=== PATIENT | male | born 1960 | race Caucasian/White ===

== ENCOUNTER 2021-10-22 09:30 | Emergency (ER) | payer OTHER ==
[~2021-10-22] VITALS: Ht 175.3 cm; Wt 85.7 kg
[~2021-10-22 09:30] MED LIST: BACTRIM DS TAB1 EACH PO; CEPHALEXIN500 MG PO; DOXYCYCLINE HY100 MG PO; EPIPEN 2-P0.3 MG/0.3 IM; FLOMAX0.4 MG PO; MARIJUANA; NAPROSYN500 MG PO; NAPROXEN500 MG PO; NORCO 10-325 T1 EACH PO; NORCO 5-325 TA1 EACH PO; VENTOLIN HFA18 GM INH
--- OUTSIDE RECORDS SUMMARY | 2021-10-22 09:41 | XMS ---
PreManage Notification: JORDAN KUMAR Security Ophthalmic Pathologist Events No recent Security Events currently on file CRITERIA MET - [facility] - 2 Visits in 30 Days CARE PROVIDERS There are no care providers on record at this time. Melanie has no Care Guidelines for this patient. Karri VISIT COUNT (12 MO.) 2 [facility] [place] H. TOTAL 2 NOTE: Visits indicate total known visits. ED/C VISIT TRACKING (12 MO.) 10/22/2021 09:31 [facility] [place] TYPE: Emergency COMPLAINT: - ALLERGIC REACTION TO MEDICATION 10/07/2021 13:[address] [facility] [place] TYPE: Emergency COMPLAINT: - R LEG WOUND DIAGNOSES: - Bee allergy status - Nicotine dependence, unspecified, uncomplicated - Cellulitis of right lower limb - Other tank terminal gauger (current) drug therapy INPATIENT VISIT TRACKING (12 MO.) No inpatient visits to display in this time frame [email or web address]
[2021-10-22] MEDS ORDERED: PREDNISONE20 MG PO (10:33)
[2021-10-22] MEDS ORDERED: FLOVENT HFA12 G1 INH (10:33)
[2021-10-22] MEDS ORDERED: VENTOLIN HFA18 GM INH (10:33)
== END 2021-10-22 10:57 | disposition home or self-care (01) ==
LOC: ED 09:30
DX: T78.40XA Allergy, unspecified, initial encounter (principal); R22.0 Localized swelling, mass and lump, head; S40.029A Contusion of unspecified upper arm, initial encounter; X58.XXXA Exposure to other specified factors, initial encounter; F17.200 Nicotine dependence, unspecified, uncomplicated; Z91.030 Bee allergy status; Z79.899 Other long term (current) drug therapy
CPT/HCPCS: 99283; J7512; Q0163

== ENCOUNTER 2022-01-28 11:04 | Emergency (ER) | payer OTHER ==
[~2022-01-28] VITALS: Ht 175.3 cm; Wt 85.7 kg
[~2022-01-28 11:04] MED LIST changes: +FLOVENT HFA12 G1 INH; +PREDNISONE20 MG PO
[2022-01-28] MEDS ORDERED: CEPHALEXIN500 M1 PO (13:31)
== END 2022-01-28 14:06 | disposition home or self-care (01) ==
LOC: ED 11:04
DX: L03.116 Cellulitis of left lower limb (principal); F17.200 Nicotine dependence, unspecified, uncomplicated; Z91.030 Bee allergy status
CPT/HCPCS: 36415; 80053; 81001; 83605; 85025; 87040; 93971; 96365; 99284-25; A9270; J2700

== ENCOUNTER 2022-04-25 19:58 | Inpatient (IN) | payer OTHER ==
[~2022-04-25] VITALS: Ht 175.3 cm; Wt 89.8 kg
[~2022-04-25 19:58] MED LIST changes: +CEPHALEXIN500 M1 PO
--- OUTSIDE RECORDS SUMMARY | 2022-04-25 20:00 | XMS ---
PreManage Notification: JORDAN KUMAR Security Senior Energy Analyst Events 1 event(s) in the past 18 months Most recent security events: Elopement at [facility] 02/08/2022 18:03 - Patient eloped before treatment completed. - Patient with suicidal and/or homicidal ideations eloped. - Patient eloped with IV in place. Details: PATIENT LWBS CRITERIA MET - [facility] - 2 Visits in 30 Days CARE PROVIDERS There are no care providers on record at this time. Melanie has no Care Guidelines for this patient. E.Jagdish. VISIT COUNT (12 MO.) 7 [facility] H. TOTAL 7 NOTE: Visits indicate total known visits. ED/C VISIT TRACKING (12 MO.) 04/25/2022 19:58 [facility] [place] [place] COMPLAINT: - SHORTNESS OF BREATH 04/22/2022 07:45 [facility] [place]: [place] COMPLAINT: - REDNESS, SWELLING, PAIN BOTH LEGS 02/15/2022 19:42 [facility] [place] TYPE: Emergency COMPLAINT: - L LEG PAIN/ NO INJ DIAGNOSES: - Nicotine dependence, unspecified, uncomplicated - Cellulitis of left lower limb - Other group home (current) drug therapy - Encounter for immunization - Bee allergy status - Allergy status to other antibiotic agents 02/08/2022 18:03 [facility] [place] TYPE: Emergency COMPLAINT: - L LEG INFECTION 01/28/2022 11:05 [facility] [place] [place] TYPE: Emergency COMPLAINT: - LT LOWER LEG PAIN DIAGNOSES: - Other specified soft tissue disorders - Bee allergy status - Nicotine dependence, unspecified, uncomplicated - Cellulitis of left lower limb 10/22/2021 09:31 [facility] [place] TYPE: Emergency COMPLAINT: - ALLERGIC REACTION DIAGNOSES: - Other adjunct faculty for medical terminology (current) drug therapy - Bee allergy status - Contusion of unspecified upper arm, initial encounter - Localized swelling, mass and lump, head - Exposure to other specified factors, initial encounter - Allergy, unspecified, initial encounter - Nicotine dependence, unspecified, uncomplicated 10/07/2021 13:23 [facility] [place] TYPE: Emergency COMPLAINT: - R LEG WOUND DIAGNOSES: - Bee allergy status - Other group home (current) drug therapy - Nicotine dependence, unspecified, uncomplicated - Cellulitis of right lower limb INPATIENT VISIT TRACKING (12 MO.) No inpatient visits to display in this time frame [email or web address]
[2022-04-25] MEDS ORDERED: DICLOFENAC SODI75 MG PO (20:42)
[2022-04-25] MEDS ORDERED: SULFAMETHOXAZO1 EAC1 PO (20:42)
--- NOTE | 2022-04-25 23:50 | NUR ---
pt arrived to room 129 from E.D HE IS ALERT BUT DROWSY, REQUIRED ASSIST TO TRANSFER TO ROOM BED VIA SLIDE SHEET. PT AGREED TO HAVE PANTS CUT OFF TO HAVE GOWN PLACED. HE VERBALIZES APPROPRIATELY
--- NOTE | 2022-04-26 00:27 | NUR ---
pt reports no urge to urinate, bladder scanned for 277ml. also noted to have temp of 101.8 will notify
--- NOTE | 2022-04-26 01:10 | NUR ---
CALLED TO UPDATE ON PT TEMPS, LACTIC TRENDING DOWN AND NO URINE OUT WITH BLADDER SCAN OF 277ML. REQUEST CHAMPION FOR CLOSE MONITORING OF URINE OUT, NEW ORDER RECEIVED.
--- NOTE | 2022-04-26 02:30 | NUR ---
arceo catheter placed with 300ml return, sterile procedure maintained, 9ml sterile water into balloon. pt tolerated well. pt assisted up to bedside commode to attempt to have a bm. he passed flatus. no stool, urine sent to lab per orders. pt reports pain increase after activity to 8/10.
--- NOTE | 2022-04-26 03:59 | NUR ---
PT REPORTS PAIN 8/10 NORCO PRN ONE TAB ADMINISTERED AT THIS TIME. NEW IV SITE ESTABLISHED. LEFT HAND IV PULLED OUT PT WAS UP TO BEDSIDE COMMODE, LEFT HAND IV SIDE REMOVED.
--- NOTE | 2022-04-26 04:57 | NUR ---
PHOTOS AND PHOTO CONSENT COMPLETE OF BILATERAL LEGS CELLULITIS AND RIGHT ARM PUSTULES X2. OUTLINED MAJORITY OF TOP AND LATERAL RED AREAS. NOTE THAT THE RED AREA EXTENDS TO RIGHT GROIN AND IS OUTLINED, NO CHANGE SINCE ADMIT.
--- NOTE | 2022-04-26 06:06 | NUR ---
PT HAD LARGE LIQUID BM, PARTIAL BED CHANGE REQUIRED. 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 PT HAS GOOD BED MOBILITY TURNING TO ASSIST. LEGS ELEVATED ON TWO PILLOWS SINCE ADMISSION, PT TOLERATING WELL. HE ON ROOM AIR 95% OXYGEN SATURATION AT THIS TIME. V/S STABLE.
--- NOTE | 2022-04-26 07:00 | NUR ---
PT HAD SECOND LARGE LIQUID BROWN BM. BARRIER CREAM AT BEDSIDE. FOR BOTTOM, PT ALERT AND TOLERATING AND COOPERATIVE WITH CARE.
--- NOTE | 2022-04-26 07:30 | NUR ---
REPORT RECEIVED, CARE OF PT ASSUMED AT THIS TIME.
--- NOTE | 2022-04-26 08:00 | NUR ---
ASSESSMENT COMPLETED. PT INCONTINENT OF BOWEL. UP TO BSC. SHORTNESS OF BREATH WITH EXERTION NOTED BUT SPO2 MAINTAINED GREATER THAN 93% LUNGS SOUND COARSE THROUGHOUT WITH MILD EXPIRATORY WHEEZE NOTED IN UPPER AIRWAYS. LARGE BM ON BSC. PT TOE TOUCH ONLY WITH RIGHT LOWER EXTREMITY. WHILE EXTREMITY IS DEPENDENT REDNESS INTENSIFIED AND PURPLISH DISCOLORATION NOTED. PT REPORTS 7/10 PAIN IN BOTH LOWER EXTREMITIES. EXCORITATIONS NOTED IN RAVINDRA AREA AND A SMALL OPEN AREA ON COCCYX. PT DENIES ANY PAIN OR DISCOMFORT IN THIS AREA. RETAIL LOSS PREVENTION OFFICER NOTIFIED OF NEED FOR WOUND CONSULT. PLAN OF CARE FOR DAY ESTABLISHED. CALL LIGHT WITHIN REACH. WILL CONTINUE TO MONITOR.
--- NOTE | 2022-04-26 09:07 | NUR ---
DR CAMPOS UPDATED ON ASSESSMENT FINDINGS. IN TO SEE PT AT THIS TIME. PT'S SON AT BEDSIDE WELL. PT NOW EATING BREAKFAST. CALL LIGHT WITHIN REACH. WILL CONTINUE TO MONITOR.
[2022-04-26] MEDS ORDERED: PREDNISONE20 MG PO (09:13)
[2022-04-26] MEDS ORDERED: VENTOLIN HFA18 GM INH (09:14)
[2022-04-26] MEDS ORDERED: TAMSULOSIN HCL0.4 MG PO (09:15)
--- NOTE | 2022-04-26 09:42 | NUR ---
MEDICATIONS ADMINSITERED. PT GIVEN PAIN MEDICATION FOR 10/10 LEG PAIN. IV FLUIDS BOLUS INFUSING. CALL LIGHT WITHIN REACH. WILL CONTINUE TO MONITOR.
--- NOTE | 2022-04-26 10:41 | NUR ---
SPOKE WITH JC RYAN, PATIENT SLEEPING AND IS ACUTELY ILL AT THIS TIME. JC RYAN STATES PATIENT IS LIVING AT HOME WITH HIS WHO HAS MS. SKIN CONDITION IS DESCRIBED VERY POOR WITH BREAKDOWN ON BUTTOCKS AND SEVERAL LEG WOUNDS. WILL DEFER ASSESSMENT FOR TODAY AND CHECK BACK WITH PATIENT TOMORROW.
--- NOTE | 2022-04-26 11:15 | NUR ---
PT REPORTS PAIN LEVEL HAS DECREASED TO 6/10 WITH MEDICATION ADMINISTRATION. DENIES FURTHER NEEDS AT THIS TIME.
--- NOTE | 2022-04-26 12:44 | NUR ---
ASSESSMENT UNCHAGNED. PT REMAINS AFEBRILE. HEART RATE IN ZEV 90S AT REST. PT DROWSY BUT RESPONDS TO VOICE AND IS ALERT AND ORIENTED WHEN AWAKE. IV FLUIDS AND ABX INFUSING. PT REMAINS ON ROOM AIR. CALL LIGHT WITHIN REACH. NO FURTHER NEEDS AT THIS TIME.
--- NOTE | 2022-04-26 14:12 | NUR ---
PT REMAINS DROWSY BUT AWAKENS TO VOICE. REDNESS AND SWELLING IN LOWER EXTREMITIES HAS IMPROVED. PT DENIES NEED FOR PAIN MEIDCATION. IV ABX AND FLUIDS CONTINUE TO INFUSE. URINE OUTPUT IS LESS [place] THAN EARLIER IN THE SHIFT, COLOR IS YELLOW. HEART RATE 100 AT REST. SPO2 = 925 ON ROOM AIR. CALL LIGHT WITHIN REACH. WILL CONTINUE TO MONITOR.
--- NOTE | 2022-04-26 15:58 | NUR ---
ASSESSMENT COMPLETED. PT NOW AWAKE. REMAINS ALERT AND ORIENTED. HEART RATE 100 AT REST, 110 WITH MOEVEMENT IN THE BED. DENIES SHORTNESS OF BREATH. RESPIRATIONS EVEN AND UNLABORED. SPO2 = 96% ON ROOM AIR. LUNGS REMAIN COARSE WITH MILD EXPIRATORY WHEEZE. ENCOURAGED COUGHING AND DEEP BREATHING. WOUND CARE NURSE PAULINO IN TO ASSESS PT'S BILATERAL LOWER LEGS.
--- NOTE | 2022-04-26 16:30 | NUR ---
AFTER DISCUSSION WITH DR CAMPOS AND WOUND CARE NURSE, TABITHA BOOTS PLACED ON BILATERAL LOWER LEGS. WELL TOLERATED BY PT. PT NOW WATCHING TELEVISION. CALL LIGHT WITHIN REACH. WILL CONTINUE TO MONITOR.
--- NOTE | 2022-04-26 16:40 | NUR ---
THIS RN SEES PT FOR A WOUND CONSULT OF BLE EXTREMITY WOUNDS A RESULT OF CELLULITIS AND VASCULAR IMPAIREMENT. THERE ARE DIFFUSE WOUNDS CIRCUMFRENCIALLY ON BLE. THERE ARE SEVERAL WOUNDS THAT ARE COVERED IN 100% ESCHAR THAT COULD REQUIRE SURGICAL INTERVENTION ONCE THE CELLULITIS INFECTION IS UNDER CONTROL. THE BASE OF THE A MAJORITY OF THE REMAINING WOUNDS ARE COVERED IN DRAINAGE/SLOUGH. THE WOUNDS HAVE SEROSANGUINOUS DRAINAGE PRESENT, IN A SMALL/MODERATE AMOUNT. THE PERIWOUND IS RED AND INDURATED/EDEMATOUS AND EXTREMEMLY WARM TO THE TOUCH. THE PT HAS SIGNIFICANT PAIN WITH ACTIVE TOUCH AND MOVEMENT OF THE BLE. THE PLAN OF CARE FOR THIS PT IS TO APPLY UNNA BOOTS TO HELP CLEAN/GENTLY DEBRIDE BLE WOUNDS, IN ADDITION ADD LIGHT COMPRESSION TO HELP REDUCE SWELLING. THE UNNA BOOTS ARE APPLIED, STARTING AT THE SMALL TOE UP TO APPROX. 2 FINGERS BELOW THE KNEE. CAST PADDING AND COBAN AND APPLIED TO SECURE THE UNNA BOOT IN PLACE AND TO ADD AN ADDITIONAL ABSORPTION FOR ANY WOUND DRAINAGE. A NURSING TREATMENT ORDER IS PUT IN TO CHANGE THE DRESSINGS EVERY 2-3 DAYS OR PRN FOR SOILED DRESSINGS. CCU RN'S ARE GIVEN TIPS AND TRICKS ON TROUBLESHOOTING/PROBLEMS SOLVING ISSUES TO INCLUDE WHAT TO DO IF THE DRESSING BECOMES TOO TIGHT (CUT A V IN THE TOP OF THE DRESSING OR REPLACE THE COBAN), IF THERE IS A SIGNIFICANT AMOUNT OF DRAINAGE COMING THROUGH THE DRESSING TO PUT AN ABD PAD OR NON-ADHESIVE FOAM DRESSING OVER THE WOUND ON THE OUTSIDE OF THE COBAN.
--- NOTE | 2022-04-26 17:16 | NUR ---
PT NOW ASLEEP AGAIN. SPO2 = 100%. CALL LIGHT WITHIN REACH. WILL CONTINUE TO MONITOR.
--- NOTE | 2022-04-26 18:42 | NUR ---
PT ASLEEP IN BED. ON ROOM AIR. PERIODS OF APNEA NOTED WHILE SLEEPING. PT DESATURATES DOWN INTO THE MID 80S AND THEM COMES BACK UP.
--- NOTE | 2022-04-26 19:31 | NUR ---
PT RESTING QUIETLY IN BED, EYES CLOSED, POSITION RELAXED, NO GRIMACE OR MOANING, NO DISTRESS NOTED, RR 20/MIN
--- NOTE | 2022-04-26 22:00 | NUR ---
IV PUMP ALARMING THIS RN INTO BEDSIDE, IV PUMP ALARM FOR DISTAL OCCLUSION, PT HAD ARM BENT. PT ALERT TO THIS RN AT BEDSIDE, HE REQUESTS ANOTHER SPRITE. HE DENIES ANOTHER NEEDS AT THIS TIME, V/S STABLE. U.O. OF CHAMPION AT THIS TIME 400ML CLEAR YELLOW.
--- NOTE | 2022-04-26 23:28 | NUR ---
pt assisted to fully turn to left side with pillow support. pt has no requests or concerns at thi time.
--- NOTE | 2022-04-27 00:30 | NUR ---
PT REPOSITIONING IN BED HIMSELF, RN IN ROOM TO ASSESS PT AND PAIN, NO NEW CONCERNS, PAIN AT 10/10 AT BLE AND BACK, ONE TAB NORCO ADMINSTERED AT THIS TIME.
--- NOTE | 2022-04-27 01:54 | NUR ---
PT ALERT AT THIS TIME, REPORTS HE IS HUNGRY, LUNCH BOX PROVIDED, TV REMOTE PROVIDED, PT ASSISTED TO REPOSITION AND BOOST UP IN BED, LEGS ELEVATED ON PILLOWS, UNNA BOOTS CDI. NO NEW COCNERNS AT THIS TIME.
--- NOTE | 2022-04-27 05:00 | NUR ---
PT NOW ON 1L HE IS SLEEPING FLAT DUE TO BACK PAIN AND IS DESATURATING TO 87%. OTHERWISE AM ASSESSMENT SHOWS NO NEW CONCERNS. VOIDING Q.S., V/S STABLE, AFEBRILE.
--- NOTE | 2022-04-27 05:15 | NUR ---
LABS DRAWN OFF LEFT FA IV BY THIS RN, WITH 8ML WASTE, THEN 10ML FOR LAB.
--- NOTE | 2022-04-27 07:54 | NUR ---
MED REC COMPLETE
--- NOTE | 2022-04-27 08:00 | NUR ---
Update from Rn. Pt improving. Cont. to have difficulty with mobility. Leg pain and cellulitis are improving. Will move to the floor today, pt on house convenience in CCU.
--- NOTE | 2022-04-27 08:15 | NUR ---
PATIENT AWAKES EASILY AND APPROPRIATELY UPON NURSE ENTERING ROOM; PATIENT C/O LOWER EXTREMITY PAIN, HOWEVER, HAS RECENTLY BEEN MEDICATED FOR SAME. PATIENT REPORTS NO OTHER COMPLAINTS. PATIENT STATES HE RESTED WELL AND HAS AN APPETITE FOR BREAKFAST. NEURO INTACT X 4. RESPIRATORY RATE EQUAL AND UNLABORED, WITH RHONCHI NOTED TO UPPER LUNGS. ABDOMEN SOFT, NON TENDER TO PALPATION WITH ACTIVE BOWEL SOUNDS. CHAMPION TO GRAVITY DRAINING CLEAR [place] URINE. CHAMPION CARE PERFORMED. BILATERAL LOWER EXTREMITIES WRAPPED IN UNNA BOOTS, PULSES DOPPLERED WITHOUT DIFFICULTY. CAP REFILL <3 SEC ON BILATERAL TOES. PATIENT MOVES SELF IN BED WITHOUT DIFFICULTY OR ASSISTANCE. PATIENT REFUSED ORAL/BODY CLEANSE CARE AT THIS TIME. MD TO BEDSIDE WHILE PERFORMING ASSESSMENT.
--- NOTE | 2022-04-27 10:35 | NUR ---
PATIENT ASSISTED WITH NURSES AND PT TO STANDING SCALE AND THEN TO CHAIR. PATIENT UTILIZED WALKER IN TRANSITION. PATIENT TOLERATED FAIRLY. DID NOT BEAR WEIGHT ON RIGHT FOOT STATING IT HURTS HIS ANKLE. PATIENT REMAINS 96% ON RA AFTER TRANSITION TO CHAIR. PATIENT BATHED AND LINENS CHANGED. PATIENT RESTING IN RECLINED CHAIR AT THIS TIME.
--- NOTE | 2022-04-27 13:06 | NUR ---
PATIENT RESTING WELL IN RECLINER CHAIR, WITH BILATERAL LEGS ELEVATED. NO COMPLAINTS OR NEEDS EXPRESSED AT THIS TIME. PATIENT TOLERATED MEAL WELL.
--- NOTE | 2022-04-27 14:39 | NUR ---
REPORT RECEIVED FROM SHELBY HINES. AWAITING PTS ARRIVAL TO MED/SURG.
--- NOTE | 2022-04-27 14:39 | NUR ---
PATIENT REPORT GIVEN TO RUPINDER MED SURG NURSE. PATIENT RESTING COMFORTABLY IN RECLINER, NO COMPLAINTS OR NEEDS EXPRESSED. CARE TRANSFERRED UPON ARRIVAL TO MED/SURG SHORTLY.
--- NOTE | 2022-04-27 15:49 | NUR ---
PT ARRIVED FROM CCU BY CHAIR. PT REPORTS 9/10 PAIN IN RIGHT FOOT AND 8/10 PAIN IN LEFT FOOT. PT REQUESTS PAIN MEDICATION, SEE MAR FOR MEDICATION GIVEN. PT ALERT AND OREINTED TO ALL. BMAT LEVEL 3 WITH FWW AND 2 PERSON ASSIST. PT CONTINUES TO REFUSE TO PUT WEIGHT ON RIGHT FOOT STATING THE PAIN IS "TOO MUCH." CIWA SCORE OF 2 FOR ANXIETY AND MOIST PALMS, NOTED THAT THESE COULD ALSO BE DUE TO INFECTION. PT REPORTS HIS SON IS "A DRINKER" AND HE DRINKS WITH HIS SON. RHONCHI HEARD IN UPPER LOBES. LOWER LOBES CLEAR ALTHOUGH DEMINISHED. NO COUGH NOTED. PT TOELRATING ROOM AIR. PT TOLERATING ROOM AIR WITH OXGYEN SATURATIONS ABOVE 94%. HEART TONES REGULAR. UNABLE TO FEELESE IN FEET UNABOOT COVERS FEET. LEGS AND FEET REMAIN OBVIOSLY SWOLLEN, RED, AND WARM TO TOUCH. REDNESS OUTLINED AND REMAINS WITHIN OUTLINED AREA. TABITHA BOOTS INTACT ALTHOUGH MOIST IN PLACES WITH DRAINAGE. SOCKS ALSO MOIST, NEW SOCKS APPLIED. NUMBNESS TO FEET PER BASELINE. PT VOIDED RIGHT BEFORE TRANSFER TO [facility], IV FLUIDS CONTINUE. BLISTERS ON RIGHRT FORARM REDENED AND WARM TO TOUCH WELL. PT OREINTED TO ROOM AND USE OF CALL LIGHT. NO ADDITIONAL REQUESTS OR COMPLAINTS. ICE WATER REFILLED. CALL LIGHT WITHIN REACH.
--- NOTE | 2022-04-27 15:54 | NUR ---
PATIENT TRANSFERRED TO ROOM 109 VIA RECLINER CHAIR AT 1544.
--- NOTE | 2022-04-27 16:26 | NUR ---
PT ARRIVED FROM CCU THIS SHIFT, HERE FOR CELLUITIS AND DORIS. PT UP TO CHAIR THIS SHFIT AND WITH PHYSICAL THERAPY WITH 2 PERSON ASSIST AND FWW. PT DOES NOT TOLERATE ACITVITY WELL REPORTING EXTREME PAIN IN RIGHT ANKLE. PRN PAIN MEDICAITON GIVEN FOR 8-9/10 PAIN IN LOWER EXTREMITIES. LOWER EXTREMITIES RED AND HOT TO TOUCH. REDNESS OUTLINED. TELEMETRY MONITORING DC'D, TACHYDARDIA CONTINUES AT TIMES. RHONCHI IN UPPER LOBES OF LUNGS, PT TOLREATING ROOM AIR. CIWA THIS SHIFT OF 2. CHAMPION CATHETER DC'D, PT HAS VOIDED, QUANTITY SUFFICIENT. IV ABX GIVEN. TABITHA BOOTS REMAIN IN PLACE TO BILATERAL LOWER EXTREMITIES, LEGS CONTINUES WEEPING. PT USES CALL LIGHT AND MAKES NEEDS KNOWN.
--- NOTE | 2022-04-27 17:13 | NUR ---
DINNER DELIVERD TO PT. PT REMAINS UP TO CHAIR. PT REPORTS PAIN IN BILATERAL LOWER EXTREMITIES IS "GETTING BETTER" NOW AT 6/10. PT DENIES NAUSEA. PT REQUESTS "JUST SOME TIME TO EAT." PT DENIES ADDITIONAL REQUESTS OR COMPLAINTS. CALL LIGHT WITHIN REACH.
--- NOTE | 2022-04-27 17:33 | NUR ---
PT CALL LIGHT ON. PT REPORTS "I'M SWEATING TO ." THIS RN TO ROOM. PT DOES NOT APPEAR DIAPHORETIC BUT PALMS ARE MOIST. TEMPERATURE DECREASED PER PT REQUEST. CIWA REMAINS 05/28. ICE WATER REFILLED. PT REPORTS A CRAVING FOR CIGARETTES, NICOTENE LOSANGE PROVIDED. NEW IV FLUID BAG HUNG. NO ADDITIONAL REQUESTS OR COMPLAINTS. CALL LIGHT WITHIN REACH.
--- NOTE | 2022-04-27 18:25 | NUR ---
THIS RN TO ROOM TO CHECK ON PT. PT RESTING IN CHAIR WITH EYES CLOSED. RESPIRATIONS EVEN AND UNLABORED. PT AWAKENS TO VOICE. VITAL SIGNS STABLE. MODERATE AMOUNT OF SEROUS FLUID NOTED ON CHUX UNDER BILATERAL LEGS. PT REPROTS 8/10 PAIN IN BILATERAL LOWER EXTREMITIES WITH MOVEMENT. 2 PERSON ASSIST WITH FWW BACK TO BED. PT UNSTEADY ON FEET AND CONTINUES STATING HE SINGH'T PUT WEIGHT ON HIS RIGHT FOOT/ANKLE DUE TO PAIN. PT ASSISTED WITH POSITIONING SELF IN BED. HEAD OF BED ELEVATED TO 30 DEGREES. PT DENIES ADDITONAL REQUESTS OR COMPLAINTS. CALL LIGHT WITHIN REACH. BED RAILS UP.
--- NOTE | 2022-04-27 19:44 | NUR ---
RECEIVED REPORT FO DAY SHIFT RN. PATIENT IS RESTING IN BED. NO NEEDS NOTED. CALL LIGHT IN REACH. IV INFUSING PER ORDER.
--- NOTE | 2022-04-27 21:37 | NUR ---
UPON ENTERING THE ROOM PATIENT WAS BEING BURPED BY MOM. PATIENT IS NOW EATING A BOTTLE BY MOM. NO NEEDS NOTED.
--- NOTE | 2022-04-27 21:55 | NUR ---
PATIENTS VITALS TAKEN AND RECORDED. INTAKE AND OUTPUT RECORDED. PATIENT RATES PAIN AT A 5/10 AND DENIES THE NEED FOR MEDICATION AT THIS TIME. PM MEDS PER ORDER. PATIENTS IV IS INFUSING PER ORDER. FRESCH ICE WATER PROVIDED. PATIENT HAS TABITHA BOOTS PER WOUND CARE ORDER ON BILAT LOW EXT. PATIENTS BILA LOW EXT ELEVATED ON PILLOW AND DRAINIAGE NOTED. NO FURTHER NEEDS NOTED. CALL LIGHT IN REACH. BED ALARM ON FOR SAFETY.
--- NOTE | 2022-04-27 22:20 | NUR ---
PATIENT IS RESTING IN BED WITH EYES CLOSED, RR 16. CALL LIGHT IN REACH. BED ALARM ON FOR SAFETY.
--- NOTE | 2022-04-28 00:04 | NUR ---
PATIENT IS RESTING IN BED WITH EYES CLOSED, RR 16. CALL LIGHT IN REACH. IV INFUSING PER ORDER.
--- NOTE | 2022-04-28 02:03 | NUR ---
PATIENT IS RESTING IN BED WATCHING TV. PATIENT PROVIDED FRESH ICE WATER. PATIENTS URINAL EMPTIED. IV INFUSING PER ORDER. NO FURTHER NEEDS NOTED. CALL LIGHT IN REACH.
--- NOTE | 2022-04-28 03:50 | NUR ---
PATIENT IS RESTING IN BED WITH EYES CLOSED, RR 16. CALL LIGHT IN REACH. IV INFUSING PER ORDER. NO NEEDS NOTED. CALL LIGHT IN REACH.
--- NOTE | 2022-04-28 04:46 | NUR ---
PATIENT IS RESTING IN BED. URINAL EMPTIED. PATIENT PROVIDED WITH FRESH ICE WATER. PATIENT DENIES ANY FURTHER NEEDS. CALL LIGHT IN REACH.
--- NOTE | 2022-04-28 05:29 | NUR ---
LAB IN ROOM. PATIENTS AM MEDS GIVEN PER ORDER. PATIENTS VITALS TAKEN AND RECORDED. INTAKE AND OUTPUT RECORDED. PATIENT RATES PAIN AT A 7/10, PRN PAIN MEDICATION GIVEN PER ORDER. PATIENT DENIES ANY FURTHER NEEDS. CALL LIGHT IN REACH.
--- NOTE | 2022-04-28 06:21 | NUR ---
PATIENT IS RESTING IN BED. NEW CAST PADDING AND COBAN PLACE DON PATIENTS ON BILAT LOW EXT. PATIENT TOLERATED ACTIVITY WELL. PATIENT DENIES ANY NEEDS. CALL LIGHT IN REACH. IV INFUSING PER ORDER.
--- NOTE | 2022-04-28 07:36 | NUR ---
RECIEVED SHIFT REPORT. PT RESTING IN BED, EYES CLOSED. BREATHING EVEN AND UNLABORED. CALL LIGHT WITHIN REACH. BD ALARM ON.
--- NOTE | 2022-04-28 08:43 | NUR ---
MORNING ASSESSMENT COMPLETE. PT RESTING IN BED. PAIN 10/25, BILAT LOWER LEGS. REQUESTS PRN PAIN MEDICATION. NIGHT RN REPORTED BILAT UNNA BOOT CHANGED ON SHIFT. DRESSINGS C/D/I. PT STATES CHRONIC BILAT NUMBNESS ANG TINGLING. CAP REFILL <3 SECS. CALL LIGHT WITHIN REACH.
--- NOTE | 2022-04-28 10:05 | NUR ---
PT RESTING, EYES CLOSED. BREATHING EVEN AND UNLABORED. CALL LIGHT WITHIN REACH. IMELDA HURTADO HUNG AT THIS TIME.
--- NOTE | 2022-04-28 11:02 | NUR ---
PT IV IN LAC CONTIOUSLY BEEPING. NEW IV STARTED IN RIGHT WRIST. PT TOLERATED WELL. LAC LEFT IN PLACE AT THIS TIME.
--- NOTE | 2022-04-28 11:19 | NUR ---
PHYSICAL THERAPY GOT PT UP TO CHAIR TO EAT HIS LUNCH. CHIMNEY BUILDER AND DIRECTOR FINANCIAL SERVICES CHANGED BED LINENS.
--- NOTE | 2022-04-28 12:08 | NUR ---
pt up in recliner, denies needs. call light within reach. chair alarm on
--- NOTE | 2022-04-28 14:19 | NUR ---
pt sitting in recliner, complains of pain but is aware of prn medication schedule and is willing to wait. call light within reach. denies further needs
--- NOTE | 2022-04-28 16:42 | NUR ---
AFTERNOON ASSESSMENT COMPLETE. PAIN 8/10, BILAT LOWER LEGS, PRN MAIN MEDICATION ADMINISTERED. NO NEW CHANGES SINCE MORNING ASSESSMENT. DRESSINGS C/D/I. CALL LIGHT WITHIN REACH.
--- NOTE | 2022-04-28 16:48 | NUR ---
PT RESTING IN BED, NAUSEA SUBSIDED. BROUGHT PT A FAN. PAIN 5/10, TOLERABLE. CALL LIGHT WITHIN REACH. DENIES FURTHER NEEDS.
--- NOTE | 2022-04-28 19:10 | NUR ---
RECEIVED REPORT FROM OFFGOING SHIFT HOURLY SHIRLEY BAE
--- NOTE | 2022-04-28 20:58 | NUR ---
IN PT ROOM FOR MEDICATION ADMINISTRATION AND ASSESSMENT. PT RESTING ON BACK, HOB ELEVATED, WATCHING VIDEOS ON CELL PHONE. PT HAS NO COMPLAINT OF PAIN AT THIS TIME, HAS CALL LIGHT IN REACH
--- NOTE | 2022-04-28 23:05 | NUR ---
IN PT ROOM FOR MEDICATION ADMINISTRATION AFTER PT COMPLAINT OF PAIN. PT RESTING ON BACK, HOB ELEVATED, NO FURTHER COMPLAINT OF DISCOMFORT AT THIS TIME. CALL LIGHT IN REACH
--- NOTE | 2022-04-29 00:56 | NUR ---
NI PT ROOM FOR ROUNDING. PT BREATHING EVEN AND UNLABORED, CALL LIGHT IN REACH
--- NOTE | 2022-04-29 01:45 | NUR ---
in to replace pts pillowcase and place chux under legs, warm blanket provided
--- NOTE | 2022-04-29 02:48 | NUR ---
IN PT ROOM FOR MEDICATION ADMINISTRATION. PT SLEEPING WITH EYES CLOSED,BREATHING EVEN AND UNLABORED, IV ANTIBIOTICS HUNG, NO COMPLAINT AT THIS TIME, CALL LIGHT IN REACH.
--- NOTE | 2022-04-29 05:00 | NUR ---
IN PT ROOM FOR ROUNDING. PT RESTING WITH EYES CLOSED, BREATHING EVEN AND UNLABORED, CALL LIGHT IN REACH.
--- NOTE | 2022-04-29 05:54 | NUR ---
PT RESTING IN BED. PT SAT UP IN BED. VITALS AND IS AND OS COMPLETE. PT DESATTING SO RN NOTIFIED AND NOW IN ROOM. ICE WATER PROVIDED. URINAL EMPTIED. NO FURTHER NEEDS. CALL LIGHT WITHIN REACH
--- NOTE | 2022-04-29 06:07 | NUR ---
SKI PATROL DIRECTOR NOTIFIED THAT AT AM VS PT O2 SATURATION WAS 87% - ATTEMPTED NON-PHARMACOLOGICAL INTERVENTIONS INCLUDING RAISING THE HOB AND BREATHING TECHNIQUES TO NO EFFECT. PLACED ON 2L NC AND CONTACTED RT FOR AVAILABLE NEBULIZER TREATMENT.
--- NOTE | 2022-04-29 11:36 | NUR ---
SPOKE WITH PATIENT IN ROOM. PATIENT LIVES WITH WHO IS DISABLED FOR MS AND HE IS ONLY CAREGIVER. STATES HE HELD OFF COMING FOR TREATMENT BECAUSE OF THIS. HE STATES THEY GET AROUND $850/MONTH FROM HER DISABILITY. HE IS NOT ABLE TO WORK TO PROVIDE HER CARE. HE STATES THEY DO HAVE FOOD STAMPS THROUGH [facility]. THEY ARE ON HUD HOUSING AND ENERGY ASSISTANCE WITH [employer]. HE DOES NOT DRIVE AND THEY TAKE CABS TO STORE OF APPOINTMENTS. HE IS UNAWARE OF FREE TRANSPORTATION WITH [facility]. GIVEN INFOR REGARDING THIS. HE STATES HE USES NO DME BUT THEY HAVE A RAMP AND TWO SCOOTERS FOR . STATES THE HOUSE IS SO SMALL THEY DON'T HAVE ROOM FOR EQUIPMENT USE INSIDE. HE STATES HE INTENDS TO DISCHARGE HOME. IS INTERESTED IN HOME HEALTH FOR HIMSELF AND IN-HOME CARE HELP FOR . HE IS OK WITH MY SETTING HIM UP TO TALK WITH [facility] ON THIS. CALLED [facility] SPOKE WITH LUIS BLACKMAN. SHE FOUND THEM IN THE SYSTEM. STATES HIS LIKELY WILL MEET FOR SOME CARE. SHE ASKS FOR HIM TO CALL HER. UPDATED PATIENT AND GAVE CONTACT INFORMATION.
--- NOTE | 2022-04-29 12:20 | NUR ---
DR CAMPOS HAD CONVERSATION WITH PATIENT AND ENCOURAGED SNF CARE. PATIENT RELUCTANTLY AGREED WITH HER TO FLORINDA HERE. [facility] @ 1214PM.
--- NOTE | 2022-04-29 12:33 | NUR ---
UNNA BOOT CHANGE COMPLETED. PT HAD 10/10 PAIN WITH DRESSING CHANGE. DISCUSSED WITH AND PAIN MEDICAITON ORDERED AND ADMISNTERED. DR CAMPOS TO BEDSIDED TO VISUALIZE LEG WOUNDS. WOUNDS WITH LARGE AMOUNT OF SLOUGH TISSUE REMOVED WITH DRESSING CHANGE. CLEANSED WOUNDS WITH WOUND CLEANSER. AFTER DRESSING, PT ASSISTED TO CHAIR FOR LUNCH. PT UNABLE TO PUT WEIGHT ON RIGHT FOOT. WALKER USED TO TRANSFER. PT HOPPED ON LEFT FOOT. CALL LIGHT PLACED WITHIN REACH. PT DENIES FURTHER NEEDS.
--- NOTE | 2022-04-29 13:10 | NUR ---
ADMIN TWO TABS NORCO 7.5/325MG PO FOR REPORTS OF 8/10 BILAT LEG PAIN.
--- NOTE | 2022-04-29 14:26 | NUR ---
PATIENT RESTING IN BED, NO DISTRESS. RESPIRATIONS EVEN AND NON LABORED. PERSONAL SUPPLIES AND CALL LIGHT WITHIN REACH.
--- NOTE | 2022-04-29 19:00 | NUR ---
TWO TABS NORCO 7.5/325MG PO ADMIN FOR REPORTED 8/10 LEG PAIN.
--- NOTE | 2022-04-29 19:25 | NUR ---
received report from offgoing shift, hourly rounding initiated
--- NOTE | 2022-04-29 20:38 | NUR ---
in pt room for medication administration. attempted to flush RW IV site, would not flush. will place new IV.
--- NOTE | 2022-04-29 20:58 | NUR ---
in pt room to restart IV access. IV placed in R forearm, old IV pulled due loss of patency. Catheter intact, no complaint of pain
--- NOTE | 2022-04-29 22:20 | NUR ---
in pt room for rounding. pt resting in chair, call light in reach, no complaint of pain or discomfort.
--- NOTE | 2022-04-30 00:12 | NUR ---
in pt room for rounding. pt resting in chair, call light in reach, no complaint of pain or discomfort.
--- NOTE | 2022-04-30 02:17 | NUR ---
in pt room for rounding, pt resting in chair, call light in reach, no complaint of pain or discomfort.
--- NOTE | 2022-04-30 04:17 | NUR ---
IN TO ANSWER CALL LIGHT. PT REPORTING PAIN 10/10 IN BLE. PRIMARY RN NOTIFIED. PRIMARY RN ASKED THIS RN TO GIVE PRN PAIN MEDICATION. THIS RN ADMINISTERED PRN PAIN MEDICATION, SEE MAR. PT TAKES PO MEDICAITON WITH NO ISSUES. PT REQUESTING PILLOWS TO ELEVATE BLE. FRESH PILLOW CASES APPLIED TO PILLOWS AND PLACED UNDER PTS BLE. PT REPORTS NO OTHER NEEDS AT THIS TIME. CALL LIGHT IN REACH. PT SITTING UP IN RECLINER.
--- NOTE | 2022-04-30 05:25 | NUR ---
In pt room for rounding, pt resting in chair, call light in reach, no copmlaint of pain
--- NOTE | 2022-04-30 09:24 | NUR ---
PATIENT IN CHAIR AFTER MEAL. VITALS AND I/O'S COMPLETED. CALL LIGHT WITHIN REACH.
--- NOTE | 2022-04-30 09:48 | NUR ---
PATIENT RESTING IN CHAIR, NO DISTRESS, EASILY WAKES TO VERBAL SITMULI. BILAT UNNA BOOTS NOTES, NOTABLE WEEPING TO RIGHT POSTERIOR DRESSING, PEDAL PULSES INTACT. IV SITE PATENT, SCHEDULED ABX STARTED. PATIENT REPORTS LEGS ARE PAINFUL, NORCO IN USE. PATIENT TOLERATED BREAKFAST WELL. NO NEEDS AT THIS TIME. LEGS ELEVATED ON PILLOWS. CALL LIGHT WITHIN REACH.
--- NOTE | 2022-04-30 10:01 | NUR ---
RECVD MESSAGE FROM DELILAH AT [facility], THEIR DNS WILL NOT CONTINUE TO REVIEW THE PATIENTS CHART UNTIL PATIENT HAS CONFIRMED THE WANT FOR PLACEMENT. DR. CAMPOS AND CHERYL PADGETT RN ADVISED IN THE AM MEETING.
--- NOTE | 2022-04-30 10:11 | NUR ---
TRIED TO VISIT PATIENT. SOUND ASLEEP IN CHAIR. PAPERWORK I GAVE HIM YESTERDAY IS NEXT TO HIM ON TABLE, UNSURE IF HE HAS CALLED [employer] YET. ASKING STAFF TO MAKE SURE HE CALLS THEM.
--- NOTE | 2022-04-30 10:58 | NUR ---
TWO NORCO 7.5/325MG PO ADMIN FOR REPORTS OF 10/10 LEG PAIN.
--- NOTE | 2022-04-30 12:30 | NUR ---
STOPPED BY TO SEE PT. WAS UP IN CHAIR EATING LUNCH. HE HAS NOT CALLED [facility] YET. STATES "I HAVE IT RIGHT HERE, BUT HAVEN'T FELT UP TO ANSWERING QUESTIONS TODAY". ENCOURAGED TO CALL [facility] TO START PROCESS FOR GETTING HELP WITH HIS CARE. STATES HE WILL. PHONE RIGHT NEXT TO PATIENT, PAPERWORK I GAVE HIM WITH CONTACT NUMBER RIGHT NEXT TO PHONE.
--- NOTE | 2022-04-30 13:38 | NUR ---
PATIENT IN CHAIR AFTER MEAL. VITALS AND I/O'S COMPLETED. CALL LIGHT WITHIN REACH.
--- NOTE | 2022-04-30 14:57 | NUR ---
SCHEDULED ABX STARTED. PATIENT IN CHAIR RESTING, NO DISTRESS. LEGS ELEVATED AT THIS TIME. RIGHT POSTERIOR DRESSING WEEPING YELLOW COLORED DRAINAGE. FRESH LINENS PROVIDED. PATIENT HAS NO NEEDS AT THIS TIME, PERSONAL SUPPLIES AND CALL LIGHT.
--- NOTE | 2022-04-30 17:14 | NUR ---
OXYCODONE 10MG PO ADMIN AT THIS TIME FOR REPORTS OF 6/10 LEG PAIN.
--- NOTE | 2022-04-30 18:17 | NUR ---
PT IN BED, MULTI CARE TECHNICIAN'S IN ROOM TO ASSIST. ABX COMPLETE, PT SALINE LOCKED. AT BEDSIDE. CALL LIGHT IN REACH
--- NOTE | 2022-04-30 18:20 | NUR ---
PATIENT IN BED AFTER MEAL. VITALS AND I/O'S COMPLETED. CALL LIGHT WITHIN REACH.
--- NOTE | 2022-04-30 19:03 | NUR ---
received report from offgoing shift, hourly rounding initiated.
--- NOTE | 2022-04-30 20:44 | NUR ---
IN TO GET VS, EMPTIED URINALS, FRESH ICE WATER PROVIDED
--- NOTE | 2022-04-30 21:38 | NUR ---
in pt room for rounding. pt resting on back, no complaint of pain at this time, call light in reach
--- NOTE | 2022-04-30 23:52 | NUR ---
in pt room for rounding. pt resting on back, eyes closed, breathing even and unlabored, no indication of pain or discomfort, call light in reach
--- NOTE | 2022-05-01 01:25 | NUR ---
IN PT ROOM FOR MEDICATION ADMINISTRATION AND ROUNDING. PT COMPLAINING OF PAIN IN LEGS, GIVEN PRN PAIN MEDICATION. PT IV NOT FLUSHING WELL, WAS ABLE TO REPOSITION IV FOR PATENCY AND FLUSH SUCCESSFULLY WITHOUT NEED TO RESTART. PT HAS NO FURTHER COMPLAINT, CALL LIGHT IN REACH.
--- NOTE | 2022-05-01 04:20 | NUR ---
IN PT ROOM FOR ROUNDING. PT RESTING ON BACK, CALL LIGHT IN REACH, NO COMPLAINT OF PAIN OR DISCOMFORT.
--- NOTE | 2022-05-01 05:37 | NUR ---
in pt room for rounding. pt resting in chair, legs up and chair laying back. pt has no complaint of pain at this time, call light in reach.
--- NOTE | 2022-05-01 07:17 | NUR ---
recieved shift report. pt in recliner, eyes closed, breathing even and unlabored. call light in reach. apartment leasing manager in room.
--- NOTE | 2022-05-01 09:09 | NUR ---
pt in chair. vitals and is and os complete. pt set up to brush dentures. oral care complete. pt assisted back to bed 1 pa stand pivot from chair. pt leg elevated. no further needs. call light within reach
--- NOTE | 2022-05-01 09:54 | NUR ---
MORNING ASSESSMENT COMPLETE. PT TRANSFERRED UP INTO THE BED, 1PA, CONTINUING EDUCATION INSTRUCTOR IN ROOM TO ASSIST. COMPLAINED OF 7/10 PAIN, PRN PAIN MEDICATION ADMINISTERED (PER EMAR). LUNGS SOUND BILAT UPPER AND RIGHT LOWER EXP. WHEEZE NOTED. BILAT UNNA BOOTS C/D/I. DENIES FURTHER NEEDS AT THIS TIME.
--- NOTE | 2022-05-01 10:32 | NUR ---
ABX HUNG AT THIS TIME. PT IN BED RESTING, DENIES FURTHER NEEDS. CALL LIGHT WITHIN REACH.
--- NOTE | 2022-05-01 11:22 | NUR ---
PT AWAKE IN BED, RIGHT LEG WEEPING NOTED THROUGH UNNA BOOT. LEFT LEG C/D/I. CALL LIGHT WITHIN REACH.
--- NOTE | 2022-05-01 11:54 | NUR ---
pt resting in bed, eyes closed, breathing even and unlabored. abx complete. S.L. call light within reach.
--- NOTE | 2022-05-01 13:19 | NUR ---
PT IN BED. VITALS AND IS AND OS COMPLETE. URINAL EMPTIED. NO FURTHER NEEDS. CALL LIGHT WITHIN REACH
--- NOTE | 2022-05-01 13:47 | NUR ---
pt resting in bed, eyes closed, breathing even and unlabored. call light within reach.
--- NOTE | 2022-05-01 16:35 | NUR ---
afternoon assessment complete. 01/25 pain, prn pain medication administered (per emar). EXP WHEEZE HEARD RIGHT UPPER AND LOWER LOBE. BILAT DRESSINGS WEEPING. PT AWARE MD WILL REDRESS TOMORROW. CALL LIGHT WITHIN REACH.
--- NOTE | 2022-05-01 18:41 | NUR ---
PT PUSHED CALL LIGHT. REPORTS IV PUMP WAS BEEPING. PUMP WAS NOT ALARMING, ABX STILL RUNNING. REASSESSED PAIN LEVEL, REPORTS 01/25, REQUESTING A DOSE. REASSURED PT THE PRN PAIN MEDICATION SCHEDULE, PT STATES "I WILL GO BACK TO SLEEP". CALL LIGHT WITHIN REACH.
--- NOTE | 2022-05-01 21:10 | NUR ---
PATIENT RESTING IN BED, NO DISTRESS. PATIENT REPORTS 10/10 BILAT LEG PAIN; ADMIN OXYCODONE 10MG PO AND TYLENOL 650MG PO AT THIS TIME. PATIENT'S RIGHT POSTERIOR LEG IS WEEPING, YELLOW DRAINAGE NOTED. CLEAN LINENS PLACED AT THIS TIME. LEGS ELEVATED ON PILLOWS, PEDAL PULSES INTACT BILAT. PT PROVIDED WITH FRESH WATER. CALL LIGHT WITHIN REACH.
--- NOTE | 2022-05-01 23:33 | NUR ---
URINAL EMPTIED AT THIS TIME. PATIENT IN BED WATCHING TV, NO DISTRESS. LEGS REMAIN ELEVATED ON PILLOWS. PERSONAL SUPPLIES AND CALL LIGHT WITHIN REACH.
--- NOTE | 2022-05-02 03:24 | NUR ---
PATIENT RESTING IN BED, EYES CLOSED, RESPIRATIONS EVEN AND NON LABORED. PATIENT HAS NO DISTRESS. PERSONAL SUPPLIES AND CALL LIGHT WITHIN REACH.
--- NOTE | 2022-05-02 07:47 | NUR ---
RECIEVED SHIFT REPORT. PT LAYING IN BED, EYES CLOSED, BREATHING EVEN AND UNLABORED. CALL LIGHT WITHIIN REACH
--- NOTE | 2022-05-02 09:21 | NUR ---
PATIENT RESTING IN BED. VITALS IN NORAML RANGE. PATIENT DOES NOT NEED ANYTHING AT THIS TIME. CALL LIGHT IN REACH.
--- NOTE | 2022-05-02 09:45 | NUR ---
MORNING ASSESSMENT COMPLETE. PT RESTING IN BED, RATES PAIN 10/10, IS ANXIOUS ABOUT CHANGING UNNA BOOTS. REASSURED PT THAT PAIN MEDICATIONS MAY BE ADMINISTERED PRIOR TO CHANGING DRESSINGS. UNNA BOOTS BILAT WEEPING. CMS INTACT. ABX HANGING AT THIS TIME. CALL LIGHT WITHIN REACH.
--- NOTE | 2022-05-02 10:06 | NUR ---
PRN PAIN MEDICATION ADMINISTERED (PER EMAR). DISCUSSED WITH PT WILL BE CHANGING UNNA BOOTS ONCE PAIN MEDICATION HAS TAKEN EFFECT.
--- NOTE | 2022-05-02 11:59 | NUR ---
IN ROOM, REMOVED UNNA BOOTS, PICTURES TAKEN. SHELBY CARR IN ROOM TO ASSIST. CLEANSED LEGS WITH DILUTED HYDROGEN PEROXIDE, APPLIED GELOCAST, WRAPPED IN CAST PADDING AND COBAND. ELEVATED ON PILLOWS. PT WANTING TO REST BEFORE RECONSIDERING PHYSICAL THERAPY. CALL LIGHT WITHIN REACH.
--- NOTE | 2022-05-02 12:25 | NUR ---
PATIENT FINISHED LUNCH AND IS RESTING IN BED. HE DID NOT NEED ANYTHING AT THIS TIME. CALL LIGHT IN REACH.
--- NOTE | 2022-05-02 12:52 | NUR ---
pt resting in bed, call light within reach
--- NOTE | 2022-05-02 16:19 | NUR ---
CHANGED PT IV DRESSINGS X2. HUNG ABX. GAVE PRN PAIN MEDICATION FOR 10/10 PAIN. PT IN BED WATCHING TV. DENIES FURTHER NEEDS.
--- NOTE | 2022-05-02 16:23 | NUR ---
AFTERNOON ASSESSMENT COMPLETE. NO NEW CHANGES SINCE MORNING ASSESSMENT. CALL LIGHT WITHIN REACH
--- NOTE | 2022-05-02 18:24 | NUR ---
pt resting in bed, eyes closed. breathing even and unlabored. call light within reach.
--- NOTE | 2022-05-02 19:21 | NUR ---
REC'D BEDSIDE REPORT FROM DAY NURSE. PT SLEEPING, BUT EASILY AROUSED. NAD, NO C/O. WILL CONTINUE TO MONITOR AND FOLLOW POC.
--- NOTE | 2022-05-02 20:30 | NUR ---
PT CALLED THIS RN TO ROOM TO CLARIFY INFO REPORTEDLY REC'D. SHE STATED OVER SPEAKER PHONE THAT SOMEONE FROM HOSPITAL HAD TEXTED HER TO SAY THAT PT IS BEING TRANSFERRED TO [facility], AND ALSO INQUIRING ABOUT VISITOR STATUS BC SHE STATES PTs SON WAS "TURNED AWAY" YESTERDAY MORNING. INQUIRED WITH CHARGE NURSE, AND THERE IS NO NOTE OR PASS DOWN OF ANY VISITORS FOR PT BEING REFUSED ACCESS. ALSO INFORMED PT AND HIS THAT HOSPITAL STAFF WILL NOT COMMUNICATE BY TEXT, ESPECIALLY TO GIVE INFO ON POC, AND INFORMED THEM THAT THE DC PLAN IS CURRENTLY STILL IN PLANNING, AWAITING PT TO CALL [facility], PER CM NOTE. NO INFO IN CHART OR PER CHARGE THAT PT IS BEING TRANSFERRED TO [facility] AT THIS TIME. PT AND WERE SATISFIED WITH THIS INFORMATION AND HAD NO FURTHER QUESTIONS.
--- NOTE | 2022-05-02 21:43 | NUR ---
ANSWERED CALL LIGHT. WENT IN TO THE ROOM. PATIENT IS ON THE PHONE TALKING WITH HIS . PATIENT WANTING TO KNOW WHAT'S GOING ON. PATIENT HAD SEVERAL QUESTIONS. THIS FIRE INVESTIGATION LIEUTENANT TOLD THE PATIENT THAT I WILL GET HIS NURSE TO ANSWER HIS QUESTIONS. PRIMARY RN NOTIFIED. EMPTIED 2 URINALS.
--- NOTE | 2022-05-02 23:17 | NUR ---
CALL LIGHT ANSWERED. WARM BLANKET PROVIDED. EMPTIED 2 URINALS.
--- NOTE | 2022-05-03 01:42 | NUR ---
IN TO THE ROOM CALL LIGHT ANSWERED. 2 URINALS EMPTIED.
--- NOTE | 2022-05-03 06:58 | NUR ---
PT WITH NO ACUTE EVENTS OVERNIGHT. VSS, NAD, NO C/O. PAIN WELL-CONTROLLED WITH CURRENT REGIMEN. WILL CONTINUE TO MONITOR AND FOLLOW POC.
--- NOTE | 2022-05-03 07:32 | NUR ---
PT RESTING EYES CLOSED AT TIME OF SHIFT REPORT. CALL LIGHT AND NEEDED ITEMS IN REACH.
--- NOTE | 2022-05-03 09:35 | NUR ---
PT TOLERATES 100% OF MORNING MEAL. RESTING IN BED CURRENTLY ABX INFUSING
--- NOTE | 2022-05-03 13:04 | NUR ---
PT SLEEPING DID NOT DISTURB. WILL CHECK BACK
--- NOTE | 2022-05-03 13:20 | NUR ---
CHART UPDATE FAXED TO [facility] PATIENT IS NOW AGREEABLE TO PLACEMENT. DELILAH AT [facility] NOTIFIED.
--- NOTE | 2022-05-03 13:24 | NUR ---
PATIENT RESTING IN CHAIR. PATIENT HAS CHANGED THE PLAN OF CARE.PATIENT IS AGREEABLE TO GO TO [facility] FOR REHB AND CELLULITIS TX. REFERRAL SENT TO [facility] BY SAM[facility] NORTH RN.
--- NOTE | 2022-05-03 14:54 | NUR ---
PT RESTING IN CHAIR DOZING AT TIMES WATCHING TV. AGREES HE IS COMFORTABLE, STATES HE IS WAITING FOR HIS TO VISIT
--- NOTE | 2022-05-03 19:34 | NUR ---
BEDSIDE HANDOFF REPORT REC'D FROM DAY RN. PT SLEEPING, BUT EASILY AROUSED. NAD, NO C/O. WILL CONTINUE TO MONITOR AND FOLLOW POC.
--- NOTE | 2022-05-04 06:22 | NUR ---
PT REFUSED GETTING UP TO CHAIR
--- NOTE | 2022-05-04 07:05 | NUR ---
PT WITH NO ACUTE OVERNIGHT EVENTS. VSS, NAD, NO C/O. PAIN WELL-CONTROLLED WITH CURRENT REGIMEN. BEDSIDE HANDOFF REPORT GIVEN TO DAY NURSE.
--- NOTE | 2022-05-04 07:39 | NUR ---
PT AWAKE AND SITTING UP IN BED AT TIME OF SHIFT REPORT. COFFEE PROVIDED PER REQUEST. PT DENIES DISCOMFORTS OR NEEDS OF.
[2022-05-04] MEDS ORDERED: OXYCODONE HCL5 MG PO (11:03)
[2022-05-04] MEDS ORDERED: NICOTINE LOZENGE4 MG BUCCAL (11:03)
[2022-05-04] MEDS ORDERED: SENNA LAX8.6 MG PO (11:04)
[2022-05-04] MEDS ORDERED: TYLENOL325 MG PO (11:05)
[2022-05-04] MEDS ORDERED: MELATONIN3 MG PO (11:05)
--- NOTE | 2022-05-04 11:06 | NUR ---
UPATED PATIENT ABOUT WHAT TIME THE PATIENT WILL BE GOING TO THE [facility] TODAY. PATIENT WILL GO IN THE WHEELCHAIR VAN AT 1345 TODAY TO [facility]. CHART FAXED TO [facility] FOR REVIEW.
[2022-05-04] MEDS ORDERED: BACTRIM DS TAB1 EACH PO (11:07)
--- NOTE | 2022-05-04 11:16 | NUR ---
DRESSINGS CHANGED TO DR ARMEN BOGGS IN TO ASSESS. EDUCATION PROVIDED AT LENGTH R/T EDEMA, CELLULITIS, AND WOUNDS. PT VERBALIZES UNDERSTANDING. DC ORDERS WRITTEN
== END 2022-05-04 13:40 | disposition home or self-care (01) | DRG 603 ==
LOC: ED 19:58 → MS 22:50 → CCU 22:50 → MS 22:50
PROVIDERS: ADMIT Internal Medicine; ATTEND Internal Medicine
DX: L03.115 Cellulitis of right lower limb (principal); N17.9 Acute kidney failure, unspecified; E87.1 Hypo-osmolality and hyponatremia; R65.10 Systemic inflammatory response syndrome (SIRS) of non-infectious origin without acute organ dysfunction; Z20.822 Contact with and (suspected) exposure to COVID-19; L03.116 Cellulitis of left lower limb; E87.5 Hyperkalemia; F17.210 Nicotine dependence, cigarettes, uncomplicated; Z88.1 Allergy status to other antibiotic agents; Z91.030 Bee allergy status; Z79.899 Other long term (current) drug therapy
CPT/HCPCS: 36415; 51702; 71045; 73630; 80048; 80053; 80202; 81003; 83605; 83735; 83880; 85025; 85610; 86140; 87040; 87502; 94640; 94760; 97116; 97162; 97530; A9270; C9803; J0692; J1650; J3010; J3370; J7030; J7040; J7060; U0003